=== PATIENT | female | born 1980 | race Caucasian/White ===

== ENCOUNTER 2017-05-16 08:14 | Emergency (ER) | payer OTHER ==
[~2017-05-16] VITALS: Ht 167.6 cm; Wt 103.0 kg
[2017-05-16 08:14] VITALS: BP 106/63
[2017-05-16 08:57] LABS: APPEARANCE,URINE CLEAR (CLEAR); BILIRUBIN,URINE NEGATIVE (NEGATIVE); BLOOD, URINE TRACE-INTA Ery/uL (NEGATIVE); COLOR,URINE YELLOW (YELLOW); KETONES,URINE NEGATIVE (NEGATIVE); LEUKOCYTE ESTERASE ,URINE 1+ (NEGATIVE); NITRITE, URINE NEGATIVE (NEGATIVE); PH,URINE 5.5 (5.0-8.0); PROTEIN,URINE NEGATIVE (NEGATIVE); UGLUCOSE NEGATIVE (NEGATIVE); UROBILINOGEN,URINE 0.2 EU/dL (0.2)
[2017-05-16 09:03] LABS: RBC,URINE 0-2 /HPF (0-2)
[2017-05-16 09:04] LABS: BACTERIA,URINE None seen /HPF (None Seen); SQUAMOUS EPITHELIAL CELL,UR Rare /HPF (None Seen)
== END 2017-05-16 09:08 | disposition home or self-care (01) ==
LOC: ER 08:18
DX: N30.00 Acute cystitis without hematuria (principal); Z85.72 Personal history of non-Hodgkin lymphomas
CPT/HCPCS: 81001; 84703; 87077; 87086; 99284; A4606; Z7610; 81000-TC

== ENCOUNTER 2017-11-14 19:46 | Emergency (ER) | payer OTHER ==
[~2017-11-14] VITALS: Ht 170.2 cm; Wt 93.0 kg
[2017-11-14 20:12] VITALS: BP 124/69
[2017-11-14 20:26] LABS: APPEARANCE,URINE Clear (CLEAR); BILIRUBIN,URINE Negative (NEGATIVE); BLOOD, URINE Moderate Ery/uL (NEGATIVE); COLOR,URINE Yellow (YELLOW); KETONES,URINE Negative (NEGATIVE); NITRITE, URINE Negative (NEGATIVE); PH,URINE 5.5 (5.0-8.0); PROTEIN,URINE 30 mg/dl (NEGATIVE); UGLUCOSE Negative (NEGATIVE); UROBILINOGEN,URINE 0.2 EU/dL (0.2)
[2017-11-14 20:50] LABS: LEUKOCYTE ESTERASE ,URINE Moderate (NEGATIVE)
[2017-11-14 21:23] LABS: BACTERIA,URINE Many /HPF (None Seen); SQUAMOUS EPITHELIAL CELL,UR Moderate /HPF (None Seen); URINE AMORPHOUS URATE Few /HPF (None Seen); WBC,URINE TOO NUMEROUS TO COUN /HPF (0-3)
== END 2017-11-14 21:30 | disposition home or self-care (01) ==
LOC: ER 19:47
DX: N30.00 Acute cystitis without hematuria (principal); Z85.72 Personal history of non-Hodgkin lymphomas
CPT/HCPCS: 81000-TC; 84703-TC; 87086-TC; 87186-TC; A4606; Z7610

== ENCOUNTER 2018-02-09 21:38 | Emergency (ER) | payer OTHER ==
[~2018-02-09] VITALS: Ht 170.2 cm; Wt 103.4 kg
[2018-02-09 21:40] VITALS: BP 132/69
--- NOTE | 2018-02-09 21:56 | NUR ---
URINE SENT TO LAB
[2018-02-09 22:09] LABS: APPEARANCE,URINE SL CLOUDY (CLEAR); BILIRUBIN,URINE NEGATIVE (NEGATIVE); BLOOD, URINE TRACE-INTA Ery/uL (NEGATIVE); COLOR,URINE DARK YELLO (YELLOW); KETONES,URINE NEGATIVE (NEGATIVE); LEUKOCYTE ESTERASE ,URINE TRACE (NEGATIVE); NITRITE, URINE POSITIVE (NEGATIVE); PROTEIN,URINE TRACE mg/dl (NEGATIVE); UGLUCOSE TRACE mg/dL (NEGATIVE)
[2018-02-09 22:20] LABS: BACTERIA,URINE Few /HPF (None Seen); RBC,URINE 0-2 /HPF (0-2); SQUAMOUS EPITHELIAL CELL,UR Moderate /HPF (None Seen)
== END 2018-02-09 22:24 | disposition home or self-care (01) ==
LOC: ER 21:42
DX: N39.0 Urinary tract infection, site not specified (principal); Z85.72 Personal history of non-Hodgkin lymphomas
CPT/HCPCS: 81001; 84703; 87077; 87086; 87186; 99284; A4606; Z7610; 81000-TC

== ENCOUNTER 2021-04-29 06:54 | Emergency (ER) | payer MEDICAID, OTHER ==
[~2021-04-29] VITALS: Ht 170.2 cm; Wt 115.7 kg
--- NOTE | 2021-04-29 07:05 | NUR ---
Delores stubbs in [facility] - 04/29/21 at 0735 by RENU gave report to kayden hagen for kerry
--- NOTE | 2021-04-29 07:12 | NUR ---
pt bibself c/o allergic rxn x 2days. Pt aaox4 breathing evenly and unlabored. Upon assessment, pt has left side tongue swelling, left neck redness and itching, left palm swelling. Per pt, she had a reaction to clindamycin. Pt able to speak in full sentences and no wheezing heard. Md at bedside for eval. Pt attached to monitor and pox. will continue to monitor.
--- NOTE | 2021-04-29 07:15 | NUR ---
gave report to kayden hagen for kerry
--- NOTE | 2021-04-29 07:56 | NUR ---
SALINE LOCK ESTABLISHED, BLOOD DRAWN
--- NOTE | 2021-04-29 08:00 | NUR ---
URINE COLLECTED AND SENT TO LAB
[2021-04-29 08:16] LABS: BASOPHILS % (AUTO) 0.1 % (0.0-2.0); EOSINOPHILS % (AUTO) 0.1 % (0.0-6.0); HEMATOCRIT 39 % (33-45); HEMOGLOBIN 12.7 g/dL (11.5-14.8); LYMPHOCYTES # (AUTO) 3.2 K/uL (0.8-4.8); LYMPHOCYTES % (AUTO) 15.8 % (20.0-44.0); MEAN CORPUSCULAR HGB CONC 33 g/dl (31.0-36.0); MEAN CORPUSCULAR VOLUME 86 fL (82-100); MONOCYTES % (AUTO) 5.2 % (2.0-12.0); NEUTROPHILS # (AUTO) 15.9 K/uL (1.8-8.9); NEUTROPHILS % (AUTO) 78.8 % (43.0-81.0); PLATELET COUNT (AUTO) 277 K/uL (150-450); WHITE BLOOD COUNT (AUTO) 20.2 K/uL (4.3-11.0)
[2021-04-29 08:40] LABS: CALCIUM, SERUM 9.4 mg/dL (8.5-10.1); CREATININE 0.8 mg/dL (0.6-1.3); POTASSIUM 3.8 mmol/L (3.5-5.1)
[2021-04-29 08:52] LABS: ALBUMIN 3.3 g/dL (3.4-5.0); BILIRUBIN,DIRECT 0.1 mg/dL (0.0-0.2); BILIRUBIN,TOTAL 0.2 mg/dL (0.2-1.0); TOTAL PROTEIN, SERUM 7.4 g/dL (6.4-8.2)
[2021-04-29 09:15] LABS: BILIRUBIN,URINE NEGATIVE (NEGATIVE); COLOR,URINE LIGHT YELLOW (YELLOW); LEUKOCYTE ESTERASE ,URINE SMALL (NEGATIVE); NITRITE, URINE NEGATIVE (NEGATIVE); PROTEIN,URINE NEGATIVE (NEGATIVE); UGLUCOSE NEGATIVE (NEGATIVE); UROBILINOGEN,URINE 0.2 EU/dL (0.2)
[2021-04-29 09:30] LABS: BACTERIA,URINE Few /HPF (None Seen)
[2021-04-29 09:31] LABS: SQUAMOUS EPITHELIAL CELL,UR Many /HPF (None Seen)
[2021-04-29] MEDS ORDERED: diphenhydrAMINE HCL 50 MG/ML VIAL ONE (09:48)
[2021-04-29] MEDS ORDERED: KETOROLAC TROMETHAMINE 15 MG/ML VIAL ONE (09:49)
[2021-04-29] MEDS ORDERED: diphenhydrAMINE HCL ELIX 25 MG/10 ML UDC ONE (09:50)
[2021-04-29] MEDS ORDERED: IBUPROFEN 400 MG TABLET ONE (09:50)
[2021-04-29] MEDS ORDERED: DIPHENHYDRAMINE HCL 12.5 MG/5 ML UDC PO ONE (10:00)
[2021-04-29] MEDS ORDERED: diphenhydrAMINE HCL 50 MG/ML VIAL IV ONE (10:00)
[2021-04-29] MEDS ORDERED: KETOROLAC TROMETHAMINE INJ 30 MG/ML VIAL IV ONE (10:00)
[2021-04-29] MEDS ORDERED: IBUPROFEN 400 MG TABLET PO ONE (10:00)
[2021-04-29] MEDS ORDERED: NAPR-1009 PO (10:12)
[2021-04-29 10:32] VITALS: BP 124/65
--- NOTE | 2021-04-29 10:32 | NUR ---
IV removed. Catheter intact and site benign. Pressure and 4x4 applied to site. No bleeding noted.Patient discharged to home in stable condition. Written and verbal after care instructions given. Patient verbalizes understanding of instruction.
== END 2021-04-29 10:32 | disposition home or self-care (01) ==
LOC: ER 06:58
DX: T78.40XA Allergy, unspecified, initial encounter (principal); K14.9 Disease of tongue, unspecified; M25.50 Pain in unspecified joint; X58.XXXA Exposure to other specified factors, initial encounter
CPT/HCPCS: 36415; 80048; 80076; 81001; 84702; 85025; 87086; 96374; 96375; 99284; J1200; J1885; Q0163